=== PATIENT | female | born 1965 | race Caucasian/White ===

== ENCOUNTER 2023-02-11 12:40 | Emergency (ER) | payer OTHER, SELFPAY ==
--- NOTE | 2023-02-11 12:45 | ED.URI ---
HPI - URI/Sore Throat General Chief Complaint: Upper Respiratory Infection Stated Complaint: Congestion/Cough Time Seen by Provider: 02/11/23 12:45 Source: patient and RN notes reviewed History of Present Illness HPI Narrative: Patient is a 58-year-old female who presents to urgent care with complaints of chest congestion and cough. Patient states that it started 1 week ago. States that she took 1 allergy medication [id number] that her son gave her, her symptoms improved, and she did not take any more of the medication. Patient denies any fever, nausea or vomiting. Denies any shortness of breath or chest discomfort. No other acute complaints. No acute distress noted. Patient aware of the plan of care. Some parts of this dictation were generated by voice recognition software and may contain typographical and/or grammatical inaccuracies. Related Data Home Medications Medication Instructions Recorded Confirmed dulaglutide 1.5 mg/0.5 mL 1.5 mg subcut DIRECTED 02/11/23 02/11/23 subcutaneous pen injector (Trulicity) dulaglutide 3 mg/0.5 mL 3 mg subcut DIRECTED 02/11/23 02/11/23 subcutaneous pen injector (Trulicity) enalapril maleate 20 mg tablet 20 mg PO DIRECTED 02/11/23 02/11/23 metformin 1,000 mg tablet 1,000 mg PO DIRECTED 02/11/23 02/11/23 pravastatin 40 mg tablet 40 mg PO DIRECTED 02/11/23 02/11/23 Allergies Allergy/AdvReac Type Severity Reaction Status Date / Time No Known Allergies Allergy Verified 02/11/23 12:59 Review of Systems Review of Systems: CONSTITUTIONAL: Denies fever, chills, or sweats. EYES: Denies visual changes, redness, or discharge. ENT: Reports of sinus congestion and postnasal drainage CARDIOVASCULAR: Denies chest pain, palpitations, or edema. RESPIRATORY: Reports of cough without dyspnea GASTROINTESTINAL: Denies abdominal pain, nausea, vomiting, or diarrhea. GENITOURINARY: Denies dysuria or hematuria. SKIN: Denies rash or itching. MUSCULOSKELETAL: Denies back pain, joint pain, or myalgia. NEUROLOGIC: Denies headache, numbness, or weakness. \ All other systems reviewed are negative, except as documented in HPI. PMFSH Comments At the time of my signature, I reviewed and agree with the nursing past medical, surgical, social, and family history. There is no relevant family history pertinent to the patient complaint. Exam Narrative: GENERAL: This is a well-nourished, well-developed patient, in no apparent distress. HEAD: normocephalic, atraumatic. Reported frontal sinus tenderness EYES: PERRL. Sclera clear/white. Vision is grossly intact. EARS: External ears normal, auditory canals clear and without drainage, TMs normal without perforation. Hearing grossly intact. NOSE: External nose normal with no obvious nasal discharge, nares without redness, clear rhinorrhea. THROAT: Mucous membranes moist, posterior pharynx clear. Moderate postnasal drainage NECK: Neck supple RESPIRATORY: Clear to auscultation. Breath sounds equal bilaterally. No wheezes, rales, or rhonchi. SKIN: warm, intact with no suspicious lesions or rash, good texture and turgor. NEURO: awake, alert, and oriented to person, place and time. There were no obvious focal neurologic abnormalities. EXTREMITIES: No clubbing, cyanosis, or edema. Course Course Level of Care: Express Care Visit Vital Signs Vital signs: Vital Signs Temperature 98.2 F 02/11/23 12:50 Pulse Rate 94 02/11/23 12:50 Respiratory Rate 20 02/11/23 12:50 Blood Pressure 118/71 02/11/23 12:50 Pulse Oximetry 100 02/11/23 12:50 Oxygen Delivery Room Air 02/11/23 12:50 Temperature 98.2 F 02/11/23 12:50 Pulse Rate 94 02/11/23 12:50 Respiratory Rate 20 02/11/23 12:50 Blood Pressure 118/71 02/11/23 12:50 Pulse Oximetry 100 02/11/23 12:50 Oxygen Delivery Room Air 02/11/23 12:50 Reviewed MDM - URI/Sore Throat MDM Narrative Medical decision making narrative: Advised patient complete the luca
[2023-02-11 12:50] VITALS: BP 118/71; PULSE 94; RESP 20; TEMP 36.8; O2SAT 100
== END 2023-02-11 13:25 | disposition home or self-care (01) ==
PROVIDERS: Emergency Provider Nurse Practitioner Family; PCP Family Medicine
DX: J00 Acute nasopharyngitis [common cold] (principal); J30.9 Allergic rhinitis, unspecified; E78.00 Pure hypercholesterolemia, unspecified; I10 Essential (primary) hypertension; E11.9 Type 2 diabetes mellitus without complications
CPT/HCPCS: 99203; G0463